=== PATIENT | male | born 1965 | race African-American/Black ===

== ENCOUNTER 2016-07-25 11:48 | Inpatient (IN) | payer OTHER, MEDICAID ==
[~2016-07-25] VITALS: Ht 185.4 cm; Wt 113.9 kg
[2016-07-25 12:18] LABS: KETONES,URINE 40 (NEGATIVE); LEUKOCYTE ESTERASE ,URINE Negative (NEGATIVE)
[2016-07-25 12:23] LABS: ADD UA MICROSCOPIC YES
[2016-07-25 12:24] LABS: ANION GAP 16 (5-14); CARBON DIOXIDE 24 mmol/L (21-32); CHLORIDE 102 mmol/L (98-107); CREATININE 1.2 mg/dL (0.6-1.3); GFR 77 mL/min (>60); GLUCOSE 101 mg/dL (74-106); POTASSIUM 4.3 mmol/L (3.5-5.1); SODIUM SERUM 138 mmol/L (136-145); UREA NITROGEN, BLOOD 21 mg/dL (7-18)
[2016-07-25 12:30] LABS: ACETAMINOPHEN 0 ug/ml (10-30); ALANINE AMINOTRANSFERASE 38 U/L (12-78); ALBUMIN 4.3 g/dL (3.4-5.0); ASPARTATE AMINOTRANSFERASE 51 U/L (15-37); BILIRUBIN,DIRECT 0.2 mg/dL (0.0-0.2); INDIRECT BILIRUBIN 0.8 mg/dL (0.0-1.1); SALICYLATE 2.8 mg/dL (2.8-20.0); TOTAL PROTEIN, SERUM 8.1 g/dL (6.4-8.2)
[2016-07-25 12:35] LABS: ADD URINE CULTURE NO; RBC,URINE 0-2 /HPF (0-2)
[2016-07-25 12:36] LABS: WBC,URINE 0-2 /HPF (0-3)
[2016-07-25 12:41] LABS: CANNABINOID, URINE NEGATIVE (NEGATIVE); PHENCYCLIDINE SCREEN,URINE NEGATIVE (NEGATIVE)
[2016-07-25 12:44] LABS: BASOPHILS % (AUTO) 0.5 % (0.0-2.0); DIFF TOTAL % 100 %; EOSINOPHILS # (AUTO) 0.1 /CMM (0.0-0.7); EOSINOPHILS % (AUTO) 1.6 % (0.0-6.0); HEMATOCRIT 41 % (39-51); HEMOGLOBIN 13.6 g/dL (13.5-17.5); LYMPHOCYTES # (AUTO) 1.9 /CMM (0.8-4.8); LYMPHOCYTES % (AUTO) 22.7 % (20.0-44.0); MEAN CORPUSCULAR HEMOGLOBIN 30 PG (26.0-33.0); MEAN CORPUSCULAR HGB CONC 34 g/dl (31.0-36.0); MEAN CORPUSCULAR VOLUME 88 fL (80-96); MONOCYTES # (AUTO) 0.9 /CMM (0.1-1.30); MONOCYTES % (AUTO) 11.5 % (2.0-12.0); NEUTROPHILS # (AUTO) 5.2 /CMM (1.8-8.9); NEUTROPHILS % (AUTO) 63.7 % (43.0-81.0); PLATELET COUNT (AUTO) 293 /CMM (150-450); WHITE BLOOD COUNT (AUTO) 8.2 K/uL (4.3-11.0)
[2016-07-25] MEDS ORDERED: QUET200T PO (12:56)
[2016-07-25] MEDS ORDERED: BUPR300T54 PO (12:56)
[2016-07-25] MEDS ORDERED: MAGNESIUM HYDROXIDE 30 ML UDC PO PRN (15:00)
[2016-07-25] MEDS ORDERED: ACETAMINOPHEN 325 MG TABLET PO PRN (15:00)
[2016-07-25] MEDS ORDERED: MAG HYDROX/AL HYDROX/SIMETH 30 ML UDC PO PRN (15:00)
[2016-07-25] MEDS ORDERED: LORAZEPAM 0.5 MG TABLET PO PRN (15:00)
[2016-07-25 16:00] VITALS: BP 146/100
[2016-07-25 20:00] VITALS: BP 106/67
[2016-07-26 08:00] VITALS: BP 102/62
[2016-07-26 08:09] LABS: ALBUMIN 3.5 g/dL (3.4-5.0); BILIRUBIN,TOTAL 0.7 mg/dL (0.2-1.0); CALCIUM, SERUM 8.6 mg/dL (8.5-10.1); CREATININE 1.1 mg/dL (0.6-1.3); POTASSIUM 3.4 mmol/L (3.5-5.1); TOTAL PROTEIN, SERUM 7.3 g/dL (6.4-8.2)
[2016-07-26] MEDS ORDERED: POTASSIUM CHLORIDE 20 MEQ TAB.PRT.SR PO SCH (10:00)
[2016-07-26] MEDS: OLANZAPINE 5 MG/TAB.RAPDIS PO SCH ×3 (13:24→17:34)
[2016-07-26] MEDS ORDERED: POTASSIUM CHLORIDE 20 MEQ TAB.PRT.SR PO ONE (14:00)
[2016-07-26 16:00] VITALS: BP 124/65
[2016-07-26 20:00] VITALS: BP 140/65
[2016-07-26] MEDS: ZOLPIDEM TARTRATE 5 MG TABLET PO PRN (22:19)
[2016-07-27 08:26] VITALS: BP 108/61
[2016-07-27] MEDS: OLANZAPINE 5 MG/TAB.RAPDIS PO SCH ×3 (08:48→17:15)
[2016-07-27] MEDS ORDERED: ESCITALOPRAM OXALATE (10 MG) 10 MG TABLET PO SCH (09:00)
[2016-07-27 09:10] LABS: CALCIUM, SERUM 8.7 mg/dL (8.5-10.1); POTASSIUM 3.4 mmol/L (3.5-5.1)
[2016-07-27] MEDS ORDERED: POTASSIUM CHLORIDE 20 MEQ TAB.PRT.SR PO ONE (15:00)
[2016-07-27 16:37] VITALS: BP 101/59
[2016-07-27 19:30] VITALS: BP 123/71
[2016-07-27] MEDS: ZOLPIDEM TARTRATE 5 MG TABLET PO PRN (21:51)
[2016-07-28 08:00] VITALS: BP 114/53
[2016-07-28 08:24] LABS: CALCIUM, SERUM 8.8 mg/dL (8.5-10.1); POTASSIUM 3.9 mmol/L (3.5-5.1)
[2016-07-28] MEDS: ESCITALOPRAM OXALATE (10 MG) 10 MG TABLET PO SCH (09:09)
[2016-07-28] MEDS: OLANZAPINE 5 MG/TAB.RAPDIS PO SCH ×2 (09:09→17:33)
[2016-07-28 16:03] VITALS: BP 118/55
[2016-07-28 20:00] VITALS: BP 130/68
[2016-07-28] MEDS: ZOLPIDEM TARTRATE 5 MG TABLET PO PRN (21:22)
[2016-07-29 08:00] VITALS: BP 120/53
[2016-07-29] MEDS: ESCITALOPRAM OXALATE (10 MG) 10 MG TABLET PO SCH (08:06)
[2016-07-29] MEDS: OLANZAPINE 5 MG/TAB.RAPDIS PO SCH ×2 (08:06→17:48)
[2016-07-29 08:09] LABS: CALCIUM, SERUM 8.9 mg/dL (8.5-10.1)
[2016-07-29 16:00] VITALS: BP 128/77
[2016-07-29 19:58] VITALS: BP 136/69
[2016-07-29] MEDS: ZOLPIDEM TARTRATE 5 MG TABLET PO PRN (21:36)
[2016-07-30 07:39] LABS: CALCIUM, SERUM 8.9 mg/dL (8.5-10.1)
[2016-07-30 08:00] VITALS: BP 107/40
[2016-07-30] MEDS: ESCITALOPRAM OXALATE (10 MG) 10 MG TABLET PO SCH (08:46)
[2016-07-30] MEDS: OLANZAPINE 5 MG/TAB.RAPDIS PO SCH ×2 (08:46→17:33)
[2016-07-30 16:00] VITALS: BP 109/64
[2016-07-30 19:53] VITALS: BP 135/55
[2016-07-30] MEDS: ZOLPIDEM TARTRATE 5 MG TABLET PO PRN (21:07)
[2016-07-31 07:19] LABS: CALCIUM, SERUM 8.8 mg/dL (8.5-10.1); POTASSIUM 4.2 mmol/L (3.5-5.1)
[2016-07-31] MEDS: OLANZAPINE 5 MG/TAB.RAPDIS PO SCH (08:18)
[2016-07-31] MEDS: ESCITALOPRAM OXALATE (10 MG) 10 MG TABLET PO SCH (08:18)
[2016-07-31 08:41] VITALS: BP 128/69
[2016-07-31 15:56] VITALS: BP 138/59
== END 2016-07-31 16:20 | disposition home or self-care (01) | DRG 885 ==
LOC: ER 11:52 → GPS 13:51
PROVIDERS: ADMIT Psychiatry & Neurology Psychiatry; ATTEND Family Medicine
DX: F33.3 Major depressive disorder, recurrent, severe with psychotic symptoms (principal); R45.851 Suicidal ideations; F19.20 Other psychoactive substance dependence, uncomplicated; F29 Unspecified psychosis not due to a substance or known physiological condition; E87.6 Hypokalemia; F14.90 Cocaine use, unspecified, uncomplicated; F17.210 Nicotine dependence, cigarettes, uncomplicated; Z59.0 Homelessness; E86.0 Dehydration; M54.30 Sciatica, unspecified side
CPT/HCPCS: 36415; 80048-TC; 80053-TC; 80076-TC; 80305; 81000-TC; 85025-TC; A4606; G0480; G6039-TC; Z7610

== ENCOUNTER → 2017-06-06 | Emergency (ER) | payer MEDICAID, OTHER ==
[~2017-06-06] VITALS: Ht 180.3 cm; Wt 102.1 kg
[~2017-06-06] MED LIST: BUPR300T54 PO; OLANZAPINE 5 MG TABLET ONE; OLANZAPINE 5 MG TABLET PO ONE; QUET200T PO
--- NOTE | 2017-06-06 06:56 | NUR ---
IGNACIO MURRAY C/O SI - "TO WALK INTO THE FREEWAY," HEARING VOICES
--- NOTE | 2017-06-06 08:40 | NUR ---
DR QUIROZ AT BEDSIDE FOR EVAL
--- NOTE | 2017-06-06 09:03 | NUR ---
URINE SAMPLE COLLECTED SENT TO LAB
[2017-06-06 09:06] LABS: CARBON DIOXIDE 27 mmol/L (21-32); CHLORIDE 103 mmol/L (98-107); CREATININE 0.9 mg/dL (0.6-1.3); GLUCOSE 88 mg/dL (74-106); POTASSIUM 3.8 mmol/L (3.5-5.1); SODIUM SERUM 140 mmol/L (136-145); UREA NITROGEN, BLOOD 13 mg/dL (7-18)
[2017-06-06 09:11] LABS: BASOPHILS % (AUTO) 0.5 % (0.0-2.0); EOSINOPHILS # (AUTO) 0.1 /CMM (0.0-0.7); EOSINOPHILS % (AUTO) 1.2 % (0.0-6.0); HEMATOCRIT 38 % (39-51); HEMOGLOBIN 12.9 g/dL (13.5-17.5); LYMPHOCYTES # (AUTO) 2.3 /CMM (0.8-4.8); LYMPHOCYTES % (AUTO) 30.4 % (20.0-44.0); MEAN CORPUSCULAR HEMOGLOBIN 30 PG (26.0-33.0); MEAN CORPUSCULAR HGB CONC 34 g/dl (31.0-36.0); MEAN CORPUSCULAR VOLUME 89 fL (80-96); MONOCYTES # (AUTO) 0.8 /CMM (0.1-1.30); MONOCYTES % (AUTO) 10.1 % (2.0-12.0); NEUTROPHILS # (AUTO) 4.4 /CMM (1.8-8.9); NEUTROPHILS % (AUTO) 57.8 % (43.0-81.0); PLATELET COUNT (AUTO) 302 /CMM (150-450); RDW COEFFICIENT OF VARIATION 12.7 (11.5-15.0); RED BLOOD CELL COUNT(AUTO) 4.23 MIL/uL (4.5-6.0); WHITE BLOOD COUNT (AUTO) 7.6 K/uL (4.3-11.0)
[2017-06-06 09:12] LABS: ACETAMINOPHEN 0 ug/ml (10-30); ALCOHOL, BLOOD < 3 mg/dL (0-0); SALICYLATE 2.7 mg/dL (2.8-20.0)
[2017-06-06 09:27] LABS: APPEARANCE,URINE SL CLOUDY (CLEAR); BILIRUBIN,URINE 1+ (NEGATIVE); BLOOD, URINE NEGATIVE Ery/uL (NEGATIVE); COLOR,URINE YELLOW (YELLOW); KETONES,URINE 3+ (NEGATIVE); LEUKOCYTE ESTERASE ,URINE NEGATIVE (NEGATIVE); NITRITE, URINE NEGATIVE (NEGATIVE); PROTEIN,URINE NEGATIVE (NEGATIVE); UGLUCOSE NEGATIVE (NEGATIVE)
--- NOTE | 2017-06-06 09:33 | NUR ---
CALLED [facility] FOR PSYCH EVAL, ETA 1 HOUR
[2017-06-06 09:41] LABS: RBC,URINE NONE SEEN /HPF (0-2)
[2017-06-06 09:42] LABS: BACTERIA,URINE Rare /HPF (None Seen); MUCUS,URINE Moderate /LPF (None Seen); SQUAMOUS EPITHELIAL CELL,UR Few /HPF (None Seen); WBC,URINE 0-2 /HPF (0-3)
--- NOTE | 2017-06-06 11:45 | NUR ---
[facility] ETA [phone]. TRANSFER#[id number]
[2017-06-06 12:56] VITALS: BP 127/78
== END | disposition psychiatric hospital, planned readmission (93) ==
LOC: ER 06:58
DX: R45.851 Suicidal ideations (principal); F32.9 Major depressive disorder, single episode, unspecified; F14.10 Cocaine abuse, uncomplicated; R44.0 Auditory hallucinations; F20.9 Schizophrenia, unspecified; F10.10 Alcohol abuse, uncomplicated
CPT/HCPCS: 36415; 80048; 80305; 80329; 81001; 85025; 99285; A4606; G0480 ×2; Z7610; 81000-TC

== ENCOUNTER 2017-10-26 00:41 | Emergency (ER) | payer MEDICAID ==
[~2017-10-26] VITALS: Ht 182.9 cm; Wt 86.2 kg
[~2017-10-26 00:41] MED LIST changes: -OLANZAPINE 5 MG TABLET ONE; -OLANZAPINE 5 MG TABLET PO ONE
--- NOTE | 2017-10-26 01:01 | NUR ---
PT TO ER BED 15. BIB RA; PT WALKED TO FIRE STATION STATING "I WANTS TO JUMP OFF BRIDGE". +SI/-HI. 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 VSS/RESP EVEN UNLABORED/NAD NOTED/SKIN WARM AND DRY/DENIES N-V-D/AFEBRILE/AOX4. AWAITING MD GLYNN.
[2017-10-26 01:02] LABS: BASOPHILS # (AUTO) 0.1 /CMM (0.0-0.2); BASOPHILS % (AUTO) 0.7 % (0.0-2.0); EOSINOPHILS % (AUTO) 4.6 % (0.0-6.0); HEMATOCRIT 41 % (39-51); HEMOGLOBIN 13.9 g/dL (13.5-17.5); LYMPHOCYTES # (AUTO) 3.3 /CMM (0.8-4.8); MEAN CORPUSCULAR HGB CONC 34 g/dl (31.0-36.0); MEAN CORPUSCULAR VOLUME 88 fL (80-96); MONOCYTES # (AUTO) 1.3 /CMM (0.1-1.30); MONOCYTES % (AUTO) 12.1 % (2.0-12.0); NEUTROPHILS # (AUTO) 5.5 /CMM (1.8-8.9); NEUTROPHILS % (AUTO) 51.6 % (43.0-81.0); PLATELET COUNT (AUTO) 246 /CMM (150-450); RDW COEFFICIENT OF VARIATION 13.2 (11.5-15.0); RED BLOOD CELL COUNT(AUTO) 4.66 MIL/uL (4.5-6.0); WHITE BLOOD COUNT (AUTO) 10.8 K/uL (4.3-11.0)
--- NOTE | 2017-10-26 01:07 | NUR ---
URINE SPECIMEN OBTAINED AND SENT TO THE LAB.
[2017-10-26 01:19] LABS: CALCIUM, SERUM 9.1 mg/dL (8.5-10.1); CARBON DIOXIDE 27 mmol/L (21-32); CHLORIDE 102 mmol/L (98-107); CREATININE 1.2 mg/dL (0.6-1.3); GLUCOSE 143 mg/dL (74-106); POTASSIUM 3.5 mmol/L (3.5-5.1); SODIUM SERUM 139 mmol/L (136-145); UREA NITROGEN, BLOOD 20 mg/dL (7-18)
[2017-10-26 01:25] LABS: ALCOHOL, BLOOD < 3 mg/dL (0-0)
--- NOTE | 2017-10-26 02:54 | NUR ---
PT RESTING QUIETLY, AROUSES EASILY TO VOICE. VSS, RN TO CONTINUE MONITORING PROVIDING SAFETY/COMFORT MEASURES.
--- NOTE | 2017-10-26 04:38 | NUR ---
Pt accepted to [facility]. Dr Emery. # for report [phone].
--- NOTE | 2017-10-26 04:49 | NUR ---
REPORT GIVEN TO [facility] FOR [facility].
--- NOTE | 2017-10-26 04:54 | NUR ---
PT GOING TO [facility].
--- NOTE | 2017-10-26 05:09 | NUR ---
REPORT GIVEN TO [facility] FOR TRANSPORT.
[2017-10-26 05:12] VITALS: BP 121/69
== END 2017-10-26 05:13 ==
LOC: ER 00:42
DX: R45.851 Suicidal ideations (principal); F31.9 Bipolar disorder, unspecified; F19.10 Other psychoactive substance abuse, uncomplicated; F12.10 Cannabis abuse, uncomplicated; F14.10 Cocaine abuse, uncomplicated; F20.9 Schizophrenia, unspecified
CPT/HCPCS: 36415; 80048-TC; 80305; 85025-TC; A4606; G0480; Z7610

== ENCOUNTER 2020-03-01 17:45 | Emergency (ER) | payer MEDICAID ==
[~2020-03-01] VITALS: Ht 182.9 cm; Wt 100.7 kg
[~2020-03-01 17:45] MED LIST changes: +BUPR-319 PO; -BUPR300T54 PO
--- NOTE | 2020-03-01 18:07 | NUR ---
"Im suicidal. Yesterday I took PCP to try and kill myself". PT AAOX3, VSS. RR EVEN & UNLABORED. DENIES CP, SOB, DIZZINESS, N/V AT THIS TIME. PT SEEN & EVAL'D BY COLBY LOPEZ. 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 PT CALM & COOPERATIVE, NAD NOTED AT THIS TIME. SITTER @ BS & WILL CONT TO MONITOR.
[2020-03-01 18:15] LABS: BASOPHILS # (AUTO) 0.1 /CMM (0.0-0.2); BASOPHILS % (AUTO) 1.2 % (0.0-2.0); EOSINOPHILS % (AUTO) 0.8 % (0.0-6.0); HEMATOCRIT 43 % (39-51); HEMOGLOBIN 14.3 g/dL (13.5-17.5); LYMPHOCYTES # (AUTO) 2.1 /CMM (0.8-4.8); LYMPHOCYTES % (AUTO) 25.3 % (20.0-44.0); MEAN CORPUSCULAR HGB CONC 33 g/dl (31.0-36.0); MEAN CORPUSCULAR VOLUME 91 fL (80-96); MONOCYTES # (AUTO) 0.8 /CMM (0.1-1.30); MONOCYTES % (AUTO) 9.6 % (2.0-12.0); NEUTROPHILS # (AUTO) 5.3 /CMM (1.8-8.9); NEUTROPHILS % (AUTO) 63.1 % (43.0-81.0); PLATELET COUNT (AUTO) 283 /CMM (150-450); RED BLOOD CELL COUNT(AUTO) 4.72 MIL/uL (4.5-6.0); WHITE BLOOD COUNT (AUTO) 8.5 K/uL (4.3-11.0)
[2020-03-01 18:21] LABS: CALCIUM, SERUM 9.3 mg/dL (8.5-10.1); CARBON DIOXIDE 30 mmol/L (21-32); CHLORIDE 100 mmol/L (98-107); CREATININE 1.2 mg/dL (0.6-1.3); GLUCOSE 94 mg/dL (74-106); POTASSIUM 3.9 mmol/L (3.5-5.1); SODIUM SERUM 138 mmol/L (136-145); UREA NITROGEN, BLOOD 19 mg/dL (7-18)
[2020-03-01 18:27] LABS: ALANINE AMINOTRANSFERASE 21 U/L (12-78); ALBUMIN 4.1 g/dL (3.4-5.0); ALCOHOL, BLOOD < 3 mg/dL (0-0); ALKALINE PHOSPHATASE 75 U/L (46-116); ASPARTATE AMINOTRANSFERASE 21 U/L (15-37); BILIRUBIN,DIRECT 0.2 mg/dL (0.0-0.2); BILIRUBIN,TOTAL 0.6 mg/dL (0.2-1.0); TOTAL PROTEIN, SERUM 8.3 g/dL (6.4-8.2)
[2020-03-01 18:29] LABS: ACETAMINOPHEN < 2 ug/ml (10-30); SALICYLATE 2.5 mg/dL (2.8-20.0)
[2020-03-01 18:44] LABS: APPEARANCE,URINE Clear (CLEAR); BILIRUBIN,URINE SMALL (NEGATIVE); BLOOD, URINE Negative Ery/uL (NEGATIVE); COLOR,URINE Yellow (YELLOW); KETONES,URINE 15 (NEGATIVE); LEUKOCYTE ESTERASE ,URINE Negative (NEGATIVE); NITRITE, URINE Negative (NEGATIVE); PH,URINE 5.5 (5.0-8.0); PROTEIN,URINE Negative (NEGATIVE); UGLUCOSE Negative (NEGATIVE); UROBILINOGEN,URINE 0.2 EU/dL (0.2)
[2020-03-01 18:59] LABS: BACTERIA,URINE Few /HPF (None Seen); RBC,URINE 0-2 /HPF (0-2); SQUAMOUS EPITHELIAL CELL,UR Few /HPF (None Seen); WBC,URINE 0-2 /HPF (0-3)
[2020-03-01] MEDS ORDERED: OLANZAPINE 10 MG VIAL IM ONE ×2 (19:04→19:30)
--- NOTE | 2020-03-01 19:13 | NUR ---
MEDICATED ORDERED, PT SIMON WELL. WILL CONT TO MONITOR.
--- NOTE | 2020-03-01 19:14 | NUR ---
COVID TEST DONE & SENT TO LAB.
--- NOTE | 2020-03-01 19:49 | NUR ---
CALLED KAJAL PLUMMER
--- NOTE | 2020-03-01 19:55 | NUR ---
COLBY MAGALLON SPEAKING WITH KAJAL PUGH, DR. CASTANEDA
--- NOTE | 2020-03-01 21:11 | NUR ---
Patient is resting comfortably in bed with eyes closed. Easily aroused. VSS. Pt stable, nad noted at this time. will cont to monitor.
--- NOTE | 2020-03-02 04:51 | NUR ---
PER CJ FROM [facility] INTAKE, PT WILL BE ACCEPTED AT [facility] PENDING DISCHARGES IN THE AM
--- NOTE | 2020-03-02 05:13 | NUR ---
Patient is resting comfortably in bed with eyes closed. Easily aroused. VSS
--- NOTE | 2020-03-02 08:46 | NUR ---
This SW to follow-up on voluntary treatment for this patient at [facility]. SW to contact Bo THAPA to provide an update on this patient's case.
--- NOTE | 2020-03-02 09:46 | NUR ---
This SW refaxed clincals to [facility] per Bo THAPA clinicals were not faxed over and not received by intake. Per Bo, bed is being held, and awaiting confirmation of accepting Doctor. SW to remain available for all needs regarding this patient.
--- NOTE | 2020-03-02 10:05 | NUR ---
SW received a call from Carla at [facility] intake. Patient has been accepted under the care of Dr. Posadas and Dr. Leiva at [facility] [place]. Nurse to Nurse report to Nursing Environmental Services Assistant Hilton
[2020-03-02 11:30] VITALS: BP 111/57
--- NOTE | 2020-03-02 11:35 | NUR ---
PT AAOX4, VSS. RR EVEN & UNLABORED. DENIES CP, SOB, DIZZINESS, N/V AT THIS TIME. PT EATING LUNCH, SIMON WELL. WILL CONT TO MONITOR.
--- NOTE | 2020-03-02 12:22 | NUR ---
DIANA FROM [facility] CALLED. PT ACCEPTED TO [facility]. ACCEPTING MAXIMILIAN/SRUTHI, NUMBER FOR REPORT. [phone] EXT [phone]. THEY NEED COVID RESULTS FAXED BEFORE SENDING PATIENT.
--- NOTE | 2020-03-02 13:09 | NUR ---
PER DIANA AT [facility] ROOM NUMBER IS [id number]
--- NOTE | 2020-03-02 13:11 | NUR ---
Per Bo patient has been assigned to room [facility]
--- NOTE | 2020-03-02 13:46 | NUR ---
REPORT GIVEN TO CHERRI GILL AT [facility] FOR [facility]
== END 2020-03-02 15:33 ==
LOC: ER 17:46
DX: R45.851 Suicidal ideations (principal); F20.9 Schizophrenia, unspecified; Z91.14 Patient's other noncompliance with medication regimen; F19.10 Other psychoactive substance abuse, uncomplicated; Z20.828 Contact with and (suspected) exposure to other viral communicable diseases
CPT/HCPCS: 36415; 80048; 80076; 80299; 80307 ×2; 80320; 81001; 85025; 87426; 96372; 99285; C9803; J3490; 81000-TC; G0480

== ENCOUNTER 2020-05-04 23:52 | Emergency (ER) | payer MEDICAID ==
[~2020-05-04] VITALS: Ht 182.9 cm; Wt 99.8 kg
--- NOTE | 2020-05-04 23:58 | NUR ---
PT AAOX4. AMBULATORY WITH STEADY GAIT. BIBSELF C/O SI WITH PLAN TO OD ON PCP. PT DENIES HI. PT PLACED IN BED, ON MONITOR, AND PULSE OX. PT PLACED IN HOSPITAL GOWN, BELONINGS PLACED IN LOCKER. SITTER AT BEDSIDE.
[2020-05-05 00:39] LABS: BILIRUBIN,URINE NEGATIVE (NEGATIVE); BLOOD, URINE NEGATIVE Ery/uL (NEGATIVE); COLOR,URINE YELLOW (YELLOW); LEUKOCYTE ESTERASE ,URINE NEGATIVE (NEGATIVE); NITRITE, URINE NEGATIVE (NEGATIVE); PROTEIN,URINE NEGATIVE (NEGATIVE); UGLUCOSE NEGATIVE (NEGATIVE); UROBILINOGEN,URINE 0.2 EU/dL (0.2)
[2020-05-05 00:47] LABS: BACTERIA,URINE None seen /HPF (None Seen); RBC,URINE 0-2 /HPF (0-2); SQUAMOUS EPITHELIAL CELL,UR Few /HPF (None Seen); WBC,URINE 0-2 /HPF (0-3)
[2020-05-05 00:51] LABS: CARBON DIOXIDE 29 mmol/L (21-32); CHLORIDE 99 mmol/L (98-107); CREATININE 1.2 mg/dL (0.6-1.3); GLUCOSE 97 mg/dL (74-106); POTASSIUM 3.5 mmol/L (3.5-5.1); SODIUM SERUM 138 mmol/L (136-145); UREA NITROGEN, BLOOD 24 mg/dL (7-18)
[2020-05-05 00:57] LABS: ALANINE AMINOTRANSFERASE 40 U/L (12-78); ALBUMIN 4.2 g/dL (3.4-5.0); ALCOHOL, BLOOD < 3 mg/dL (0-0); ALKALINE PHOSPHATASE 67 U/L (46-116); ASPARTATE AMINOTRANSFERASE 51 U/L (15-37); BILIRUBIN,DIRECT 0.3 mg/dL (0.0-0.2); BILIRUBIN,TOTAL 1.3 mg/dL (0.2-1.0)
[2020-05-05 00:58] LABS: BASOPHILS # (AUTO) 0.1 /CMM (0.0-0.2); EOSINOPHILS % (AUTO) 0.8 % (0.0-6.0); HEMATOCRIT 40 % (39-51); HEMOGLOBIN 13.3 g/dL (13.5-17.5); LYMPHOCYTES # (AUTO) 2.7 /CMM (0.8-4.8); LYMPHOCYTES % (AUTO) 25.1 % (20.0-44.0); MEAN CORPUSCULAR HGB CONC 34 g/dl (31.0-36.0); MEAN CORPUSCULAR VOLUME 88 fL (80-96); MONOCYTES # (AUTO) 1.3 /CMM (0.1-1.30); MONOCYTES % (AUTO) 12.1 % (2.0-12.0); NEUTROPHILS # (AUTO) 6.6 /CMM (1.8-8.9); PLATELET COUNT (AUTO) 255 /CMM (150-450); RED BLOOD CELL COUNT(AUTO) 4.47 MIL/uL (4.5-6.0); WHITE BLOOD COUNT (AUTO) 10.8 K/uL (4.3-11.0)
[2020-05-05 01:00] LABS: ACETAMINOPHEN 0 ug/ml (10-30)
--- NOTE | 2020-05-05 02:16 | NUR ---
Facesheet and clinicals faxed to [facility].
--- NOTE | 2020-05-05 03:10 | NUR ---
PT ACCEPTED AT [facility] ACCEPTING MD YAO/DR. GANN PHONE # FOR REPORT
--- NOTE | 2020-05-05 05:00 | NUR ---
PT ASLEEP, NO ACUTE DISTRESS NOTED, RESP EVEN AND UNLABORED. CALL LIGHT WITHIN REACH. WILL CONTINUE TO MONITOR PT CLOSELY. 1:1 SITTER REMAINS AT BEDSIDE.
--- NOTE | 2020-05-05 05:30 | NUR ---
REPORT GIVEN TO ELVIN HARLEY AT [facility] FOR [facility].
--- NOTE | 2020-05-05 07:12 | NUR ---
PATIENT N BED ASLEEP, EASILY AROUSABLE BY VOICE. HOOKED TO MONITOR, VSS. SITTER AT BEDSIDE FOR SAFETY
--- NOTE | 2020-05-05 07:28 | NUR ---
CALLED [facility] FOR TRANSPORT TO [facility]. ETA [phone]. THEY WILL CALL [facility] IF THEY HAVE A SOONER ETA. WILL CALL BACK WITH ETA.
[2020-05-05 11:02] VITALS: BP 118/66
--- NOTE | 2020-05-05 11:03 | NUR ---
[facility] distress. All belongings given to patient. going to [facility]
== END 2020-05-05 11:03 ==
LOC: ER 23:57
DX: R45.851 Suicidal ideations (principal); F19.10 Other psychoactive substance abuse, uncomplicated; F20.9 Schizophrenia, unspecified; Z79.899 Other long term (current) drug therapy
CPT/HCPCS: 36415; 80048; 80076; 80299; 80307; 80320; 81001; 85025; 87426; 99285; C9803; G0480

== ENCOUNTER 2020-06-24 07:49 | Emergency (ER) | payer MEDICAID ==
[~2020-06-24] VITALS: Ht 182.9 cm; Wt 108.9 kg
[2020-06-24 08:46] LABS: BASOPHILS # (AUTO) 0.1 /CMM (0.0-0.2); BASOPHILS % (AUTO) 0.3 % (0.0-2.0); EOSINOPHILS % (AUTO) 0.4 % (0.0-6.0); HEMATOCRIT 36 % (39-51); HEMOGLOBIN 11.8 g/dL (13.5-17.5); LYMPHOCYTES # (AUTO) 1.4 /CMM (0.8-4.8); LYMPHOCYTES % (AUTO) 6.5 % (20.0-44.0); MEAN CORPUSCULAR HGB CONC 33 g/dl (31.0-36.0); MEAN CORPUSCULAR VOLUME 90 fL (80-96); MONOCYTES # (AUTO) 1.9 /CMM (0.1-1.30); MONOCYTES % (AUTO) 8.7 % (2.0-12.0); NEUTROPHILS # (AUTO) 18.6 /CMM (1.8-8.9); NEUTROPHILS % (AUTO) 84.1 % (43.0-81.0); PLATELET COUNT (AUTO) 272 /CMM (150-450); RED BLOOD CELL COUNT(AUTO) 3.98 MIL/uL (4.5-6.0); WHITE BLOOD COUNT (AUTO) 22.1 K/uL (4.3-11.0)
[2020-06-24 09:12] LABS: CALCIUM, SERUM 8.8 mg/dL (8.5-10.1); CARBON DIOXIDE 28 mmol/L (21-32); CHLORIDE 95 mmol/L (98-107); CREATININE 0.9 mg/dL (0.6-1.3); GLUCOSE 103 mg/dL (74-106); POTASSIUM 3.9 mmol/L (3.5-5.1); SODIUM SERUM 134 mmol/L (136-145); UREA NITROGEN, BLOOD 12 mg/dL (7-18)
[2020-06-24 09:19] LABS: ALANINE AMINOTRANSFERASE 23 U/L (12-78); ALBUMIN 3.6 g/dL (3.4-5.0); ALCOHOL, BLOOD < 3 mg/dL (0-0); ALKALINE PHOSPHATASE 78 U/L (46-116); ASPARTATE AMINOTRANSFERASE 31 U/L (15-37); BILIRUBIN,DIRECT 0.3 mg/dL (0.0-0.2); TOTAL PROTEIN, SERUM 7.6 g/dL (6.4-8.2)
[2020-06-24 09:20] LABS: ACETAMINOPHEN 0 ug/ml (10-30)
[2020-06-24 09:35] LABS: BILIRUBIN,URINE MODERATE (NEGATIVE); COLOR,URINE DARK YELLOW (YELLOW); LEUKOCYTE ESTERASE ,URINE Negative (NEGATIVE); NITRITE, URINE Negative (NEGATIVE); PROTEIN,URINE 100 mg/dl (NEGATIVE); UGLUCOSE Negative (NEGATIVE); UROBILINOGEN,URINE 0.2 EU/dL (0.2)
[2020-06-24 09:45] LABS: BACTERIA,URINE Rare /HPF (None Seen); RBC,URINE NONE SEEN /HPF (0-2); SQUAMOUS EPITHELIAL CELL,UR Few /HPF (None Seen); WBC,URINE NONE SEEN /HPF (0-3)
[2020-06-24 15:00] VITALS: BP 124/70
== END 2020-06-24 15:05 ==
LOC: ER 08:02
DX: R45.851 Suicidal ideations (principal); F20.9 Schizophrenia, unspecified; Z20.822 Contact with and (suspected) exposure to COVID-19; D72.829 Elevated white blood cell count, unspecified; F19.90 Other psychoactive substance use, unspecified, uncomplicated
CPT/HCPCS: 36415; 80048; 80076; 80299; 80307; 80320; 81001; 85025; 87426; 99285; C9803; G0480

== ENCOUNTER 2020-07-07 18:58 | Emergency (ER) | payer MEDICAID ==
[~2020-07-07] VITALS: Ht 182.9 cm; Wt 108.9 kg
--- NOTE | 2020-07-07 19:18 | NUR ---
URINE COLLECTED AND SENT TO LAB
--- NOTE | 2020-07-07 19:30 | NUR ---
PT BIBSELF C/O SUICIDAL IDEATION WITH PLAN TO OVERDOSE. 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 PT AAOX4. VITAL SIGNS STABLE. RESPIRATIONS EVEN AND UNLABORED. NO ACUTE DISTRESS NOTED AT THIS TIME. SUICIDAL PRECAUTIONS INITIATED. WILL CONTINUE TO MONITOR
--- NOTE | 2020-07-07 19:40 | NUR ---
REEL BLADE BENDER FURNACE TENDER AT BEDSIDE FOR BLOOD DRAW
--- NOTE | 2020-07-07 19:45 | NUR ---
suicidal w plan to overdose on "any drugs" requesting voluntary psych admit. PT A, OX 4. remained calm and cooperative at this time. vss. on si precaution. will cont to monitor ,
--- NOTE | 2020-07-07 19:55 | NUR ---
COVID SWAB COLLECTED AND SENT TO LAB
[2020-07-07 20:01] LABS: BASOPHILS # (AUTO) 0.1 /CMM (0.0-0.2); BASOPHILS % (AUTO) 0.6 % (0.0-2.0); EOSINOPHILS % (AUTO) 0.6 % (0.0-6.0); HEMATOCRIT 37 % (39-51); HEMOGLOBIN 12.1 g/dL (13.5-17.5); LYMPHOCYTES # (AUTO) 2.7 /CMM (0.8-4.8); LYMPHOCYTES % (AUTO) 19.8 % (20.0-44.0); MEAN CORPUSCULAR HGB CONC 33 g/dl (31.0-36.0); MEAN CORPUSCULAR VOLUME 89 fL (80-96); MONOCYTES # (AUTO) 1.1 /CMM (0.1-1.30); MONOCYTES % (AUTO) 7.8 % (2.0-12.0); NEUTROPHILS # (AUTO) 9.7 /CMM (1.8-8.9); NEUTROPHILS % (AUTO) 71.2 % (43.0-81.0); PLATELET COUNT (AUTO) 356 /CMM (150-450); RED BLOOD CELL COUNT(AUTO) 4.13 MIL/uL (4.5-6.0); WHITE BLOOD COUNT (AUTO) 13.6 K/uL (4.3-11.0)
[2020-07-07 20:09] LABS: CALCIUM, SERUM 8.9 mg/dL (8.5-10.1); CARBON DIOXIDE 32 mmol/L (21-32); CHLORIDE 97 mmol/L (98-107); GLUCOSE 101 mg/dL (74-106); POTASSIUM 3.4 mmol/L (3.5-5.1); SODIUM SERUM 137 mmol/L (136-145); UREA NITROGEN, BLOOD 25 mg/dL (7-18)
[2020-07-07 20:14] LABS: ALANINE AMINOTRANSFERASE 28 U/L (12-78); ALBUMIN 3.8 g/dL (3.4-5.0); ALCOHOL, BLOOD 4 mg/dL (0-0); ALKALINE PHOSPHATASE 81 U/L (46-116); ASPARTATE AMINOTRANSFERASE 35 U/L (15-37); BILIRUBIN,DIRECT 0.2 mg/dL (0.0-0.2); BILIRUBIN,TOTAL 0.9 mg/dL (0.2-1.0)
--- NOTE | 2020-07-07 20:39 | NUR ---
LAB CALLED REGARDING NEGATIVE COVID RESULT.
[2020-07-07 20:50] LABS: ACETAMINOPHEN < 0 ug/ml (10-30)
[2020-07-07 21:04] LABS: BILIRUBIN,URINE NEGATIVE (NEGATIVE); COLOR,URINE YELLOW (YELLOW); LEUKOCYTE ESTERASE ,URINE NEGATIVE (NEGATIVE); NITRITE, URINE NEGATIVE (NEGATIVE); PH,URINE 5.5 (5.0-8.0); PROTEIN,URINE NEGATIVE (NEGATIVE); UGLUCOSE NEGATIVE (NEGATIVE); UROBILINOGEN,URINE 0.2 EU/dL (0.2)
[2020-07-07 21:20] LABS: BACTERIA,URINE None seen /HPF (None Seen); MUCUS,URINE Few /LPF (None Seen); RBC,URINE 0-2 /HPF (0-2); SQUAMOUS EPITHELIAL CELL,UR 0-2 /HPF (None Seen); WBC,URINE 0-2 /HPF (0-3)
--- NOTE | 2020-07-07 21:21 | NUR ---
FACESHEET AND CLINICAL FAXED TO [facility] INTAKE FOR VOLUNTARY PSYCH ADMISSION.
--- NOTE | 2020-07-07 21:48 | NUR ---
Tete vazquez in ED - 07/07/20 at 2233 by GABRIELLA RECEIVED CALL FROM KAJAL AT [facility], NO BED AVAILABILITY AT [facility]
--- NOTE | 2020-07-07 22:11 | NUR ---
PT ASKED TO SPEAK TO ME. PT DENIES SI AND HI. REQUESTED TO LEAVE.
--- NOTE | 2020-07-07 22:12 | NUR ---
PT LEFT ED. VSS. NO ACUTE DISTRESS NOTED.
[2020-07-07 22:34] VITALS: BP 111/67
== END 2020-07-07 22:34 | disposition home or self-care (01) ==
LOC: ER 19:00
DX: R45.851 Suicidal ideations (principal); F20.9 Schizophrenia, unspecified; F19.10 Other psychoactive substance abuse, uncomplicated; Z79.899 Other long term (current) drug therapy; Z20.822 Contact with and (suspected) exposure to COVID-19; D72.829 Elevated white blood cell count, unspecified; F15.10 Other stimulant abuse, uncomplicated; F14.10 Cocaine abuse, uncomplicated; F16.10 Hallucinogen abuse, uncomplicated; Z82.49 Family history of ischemic heart disease and other diseases of the circulatory system
CPT/HCPCS: 36415; 71045; 80048; 80076; 80299; 80307; 80320; 81001; 84484; 85025; 87426; 93005; 99285; C9803; G0480

== ENCOUNTER 2020-08-21 14:18 | Emergency (ER) | payer MEDICAID ==
[~2020-08-21] VITALS: Ht 182.9 cm; Wt 104.3 kg
[2020-08-21 15:05] LABS: BASOPHILS # (AUTO) 0.1 /CMM (0.0-0.2); BASOPHILS % (AUTO) 0.6 % (0.0-2.0); EOSINOPHILS % (AUTO) 1.2 % (0.0-6.0); HEMATOCRIT 42 % (39-51); HEMOGLOBIN 13.7 g/dL (13.5-17.5); LYMPHOCYTES # (AUTO) 2.3 /CMM (0.8-4.8); LYMPHOCYTES % (AUTO) 24.9 % (20.0-44.0); MEAN CORPUSCULAR HGB CONC 33 g/dl (31.0-36.0); MEAN CORPUSCULAR VOLUME 89 fL (80-96); MONOCYTES # (AUTO) 1.1 /CMM (0.1-1.30); MONOCYTES % (AUTO) 11.7 % (2.0-12.0); NEUTROPHILS # (AUTO) 5.8 /CMM (1.8-8.9); NEUTROPHILS % (AUTO) 61.6 % (43.0-81.0); PLATELET COUNT (AUTO) 265 /CMM (150-450); RED BLOOD CELL COUNT(AUTO) 4.69 MIL/uL (4.5-6.0); WHITE BLOOD COUNT (AUTO) 9.4 K/uL (4.3-11.0)
[2020-08-21 15:13] LABS: CALCIUM, SERUM 9.4 mg/dL (8.5-10.1); CARBON DIOXIDE 26 mmol/L (21-32); CHLORIDE 101 mmol/L (98-107); CREATININE 1.1 mg/dL (0.6-1.3); GLUCOSE 118 mg/dL (74-106); POTASSIUM 3.9 mmol/L (3.5-5.1); SODIUM SERUM 137 mmol/L (136-145); UREA NITROGEN, BLOOD 15 mg/dL (7-18)
[2020-08-21 15:20] LABS: ALANINE AMINOTRANSFERASE 25 U/L (12-78); ALBUMIN 4.1 g/dL (3.4-5.0); ALCOHOL, BLOOD < 3 mg/dL (0-0); ALKALINE PHOSPHATASE 73 U/L (46-116); ASPARTATE AMINOTRANSFERASE 23 U/L (15-37); BILIRUBIN,DIRECT 0.1 mg/dL (0.0-0.2); BILIRUBIN,TOTAL 0.6 mg/dL (0.2-1.0)
[2020-08-21 15:22] LABS: ACETAMINOPHEN < 0 ug/ml (10-30)
[2020-08-21 15:34] LABS: BILIRUBIN,URINE NEGATIVE (NEGATIVE); COLOR,URINE YELLOW (YELLOW); LEUKOCYTE ESTERASE ,URINE NEGATIVE (NEGATIVE); NITRITE, URINE NEGATIVE (NEGATIVE); PH,URINE 5.5 (5.0-8.0); PROTEIN,URINE NEGATIVE (NEGATIVE); UGLUCOSE NEGATIVE (NEGATIVE); UROBILINOGEN,URINE 0.2 EU/dL (0.2)
[2020-08-21 21:30] VITALS: BP 156/88
== END 2020-08-21 21:31 ==
LOC: ER 14:19
DX: R45.851 Suicidal ideations (principal); F20.9 Schizophrenia, unspecified; Z59.0 Homelessness; Z20.822 Contact with and (suspected) exposure to COVID-19; Z79.899 Other long term (current) drug therapy; R03.0 Elevated blood-pressure reading, without diagnosis of hypertension
CPT/HCPCS: 36415; 80048; 80076; 80299; 80307; 80320; 81003; 85025; 87426; 99285; C9803; G0480